=== PATIENT | male | born 1995 | race Caucasian/White ===

== ENCOUNTER 2021-01-09 12:17 | Emergency (ER) | payer BC, OTHER ==
[~2021-01-09] VITALS: Ht 188 cm; Wt 106.0 kg
[2021-01-09] MEDS ORDERED: KETOROLAC 30 MG/ML 1ML VIAL IV ONE (14:15)
--- NOTE | 2021-01-09 14:45 | REP ---
INDICATION: right flank pain. COMPARISON: None. TECHNIQUE: Noncontrast scanning through the abdomen and pelvis with both coronal and sagittal reconstructions provided. FINDINGS: CT abdomen: Of the lung bases are clear. Heart is not enlarged there is no pericardial thickening or effusion there is no hiatal hernia. The liver, gallbladder spleen adrenal glands, pancreas and stomach were grossly unremarkable. The aorta is without aneurysm. No periaortic, other retroperitoneal or mesenteric pathologic sized lymphadenopathy. Kidneys show no calcification pyramids or stones in the collecting systems on the left side. On the right, there is a punctate 1-2 mm calcification in an interpolar renal pyramid posteriorly. No hydronephrosis, hydroureter, ureteral stone or edema in the periureteral fat. Bony spine and ribs were unremarkable. CT pelvis: The sacrum, SI joints, pelvis and hips are without acute finding. Bladder shows no mass, wall thickening or stone. No distal ureteral dilatation or stone. Abdominal and pelvic portions of small bowel show no dilatation air-fluid levels or inflammatory change. Colon from cecum to rectosigmoid is unremarkable. No inflammatory change mass or sign of obstruction. Lung window review of all CT slices in the abdomen and pelvis shows no perforation or free air. There is no ascites. I see no abdominal or pelvic pathologic sized adenopathy in the inguinal region shows no adenopathy or hernia. IMPRESSION: 1. There is a punctate 1-2 mm calcification in a renal pyramid posteriorly in the interpolar region of the right kidney without hydronephrosis, hydroureter, ureteral stone or bladder calculus. Left side unremarkable. 2. No other significant or acute finding. <Electronically signed by Jalen Beaulieu > 01/09/21 [id number]
[2021-01-09 15:01] LABS: BASO # 0.1 10^3/uL (0.0-0.2); BASO % 0.7 % (0.0-1.0); EOS # 0.2 10^3/uL (0.0-0.5); EOS % 2.3 % (0.0-3.0); HEMATOCRIT 50.8 % (42.0-52.0); HEMOGLOBIN 17.1 g/dl (13.5-17.5); LYMPH # 2.1 10^3/uL (1.5-5.0); MEAN CORPUSCULAR HEMOGLOBIN 29.7 pg (27.0-33.0); MEAN CORPUSCULAR HGB CONC 33.7 g/dl (32.0-36.5); MEAN CORPUSCULAR VOLUME 88.3 fl (80.0-96.0); MONO # 0.8 10^3/uL (0.0-0.8); MONO % 7.7 % (2.0-8.0); NEUTROPHILS # 6.8 10^3/uL (1.5-8.5); PLATELET COUNT, AUTOMATED 286 10^3/uL (150-450); RED BLOOD COUNT 5.75 10^6/uL (4.30-6.10); WHITE BLOOD COUNT 9.9 10^3/uL (4.0-10.0)
[2021-01-09] MEDS ORDERED: KETO10TAB PO (16:24)
[2021-01-09 16:27] VITALS: BP 136/86
== END 2021-01-09 16:50 | disposition home or self-care (01) ==
LOC: M ED 12:17
DX: N20.0 Calculus of kidney (principal); Z88.0 Allergy status to penicillin; F17.210 Nicotine dependence, cigarettes, uncomplicated
CPT/HCPCS: 36415; 74176; 80047; 81001; 85025; 96374; 99284; J1885

== ENCOUNTER → 2021-11-08 | Outpatient (REF) | payer BC ==
[~2021-11-08] MED LIST: KETO10TAB PO
== END ==
LOC: M LAB REF 18:37
PROVIDERS: ATTEND Physician Assistant Medical
DX: J02.9 Acute pharyngitis, unspecified (principal)